=== PATIENT | male | born 1955 | race Caucasian/White ===

== ENCOUNTER 2018-11-17 16:34 | Outpatient (REF) | payer SELFPAY ==
[2018-11-17 21:03] LABS: Hemoglobin A1C 7.9 % (4.5-6.2)
[2018-11-17 21:08] LABS: ALT 52 U/L (12-78); AST 32 U/L (15-37); Albumin 3.8 g/dL (3.4-5.0); Alkaline Phosphatase 79 U/L (46-116); Anion Gap 10.3 mmol/L (3-11); BUN 17 mg/dL (7-18); Bilirubin, Total 0.3 mg/dL (0.2-1.0); CO2 24.7 mmol/L (21.0-32.0); CREATININE 1.33 mg/dL (0.70-1.30); Calcium 10.7 mg/dL (8.5-10.1); Chloride 103 mmol/L (98-107); Cholesterol 211 mg/dL (50-200); Estimated GFR 54.13 (mL/min/1.73m2); Glucose 163 mg/dL (70-100); HDL Cholesterol 27 mg/dL (40-60); LDL CHOLESTEROL 137 mg/dL (<100); Potassium 5.1 mmol/L (3.5-5.1); Sodium 138 mmol/L (136-145); Total Protein 7.5 g/dL (6.4-8.2); Triglyceride 311 mg/dL (30-150)
[2018-11-20 10:21] LABS: PSA, Screening 4.2 ng/ml (0-4.5)
== END 2018-11-17 16:54 ==
LOC: NCHCN 16:34
PROVIDERS: PCP Family Medicine; Visit Provider Family Medicine
DX: R73.01 Impaired fasting glucose (principal); E78.5 Hyperlipidemia, unspecified; I10 Essential (primary) hypertension; E88.81 Metabolic syndrome and other insulin resistance; Z12.5 Encounter for screening for malignant neoplasm of prostate
CPT/HCPCS: 80053; 80061; 83721; 84153; 83036

== ENCOUNTER 2019-07-01 01:19 | Outpatient (CLI) | payer MEDICARE, SELFPAY ==
--- NOTE | 2019-07-01 10:35 | DI.RAD_ITS ---
SYMPTOM/DIAGNOSIS: LT FOOT PAIN, M79.672 LEFT FOOT: Three views. No evidence of an acute or healing fracture or dislocation. There are mild degenerative changes seen at the first metatarsal phalangeal joint. No radiopaque foreign bodies are seen in the soft tissues. IMPRESSION: Mild degenerative changes of the left foot.
== END 2019-07-01 01:39 ==
PROVIDERS: PCP Family Medicine; Visit Provider Family Medicine
DX: M79.672 Pain in left foot (principal); M19.072 Primary osteoarthritis, left ankle and foot
CPT/HCPCS: 73630

== ENCOUNTER 2020-08-04 02:46 | Outpatient (CLI) | payer MEDICARE, SELFPAY ==
--- NOTE | 2020-08-04 09:25 | DI.RAD_ITS ---
EXAM: XR SHOULDER RT COMPLETE 2+V CLINICAL HISTORY: RT SHOULDER PAIN, M25.511 TECHNIQUE: 2D digital imaging was performed. COMPARISON: No exams were available for comparison FINDINGS: There is spurring at the AC joint and undersurface of the acromion. There is mild spurring at the gl enoid. Humeral head is normally positioned. A subchondral cyst is seen near the greater tuberosity. No tendon or joint space calcifications are seen. IMPRESSION: [id number] degenerative changes of the AC joint and glenohumeral joint.
== END 2020-08-04 03:06 ==
PROVIDERS: PCP Family Medicine; Visit Provider Family Medicine
DX: M19.011 Primary osteoarthritis, right shoulder (principal)
CPT/HCPCS: 73030

== ENCOUNTER 2020-09-08 10:25 | Outpatient (REF) | payer MEDICARE, SELFPAY ==
[2020-09-08 19:03] LABS: HGB 14.3 g/dL (13.5-17.5); MCHC 31.8 % (32.0-36.0); MCV 91.3 fL (80-95); MPV 10.6 fL (8.0-11.0); Platelet Count 240 10^3/uL (130-400); RBC 4.93 10^6/uL (4.36-5.78); RDW 12.1 % (11.8-14.1); RDW-SD 40.7 fL; WBC 8.75 10^3/uL (4.4-10.8)
[2020-09-08 19:11] LABS: ALT 35 U/L (16-63); AST 20 U/L (15-37); Albumin 4.2 g/dL (3.4-5.0); Alkaline Phosphatase 71 U/L (46-116); Anion Gap 5.5 mmol/L (3-11); BUN 24 mg/dL (7-18); Bilirubin, Total 0.4 mg/dL (0.2-1.0); CO2 25.5 mmol/L (21.0-32.0); CREATININE 1.21 mg/dL (0.70-1.30); Calcium 10.5 mg/dL (8.5-10.1); Calculated LDL 165 mg/dL (<100); Chloride 105 mmol/L (98-107); Cholesterol 240 mg/dL (<200); Glucose 127 mg/dL (74-106); HDL Cholesterol 28 mg/dL (40-60); Potassium 5.5 mmol/L (3.5-5.1); Sodium 136 mmol/L (136-145); Total Protein 7.4 g/dL (6.4-8.2); Triglyceride 236 mg/dL (<150)
[2020-09-13 13:29] LABS: PSA, Screening 5.6 ng/mL (0-4.5)
== END 2020-09-08 10:45 ==
LOC: NCHCN 10:25
PROVIDERS: PCP Family Medicine; Visit Provider Family Medicine
DX: E11.9 Type 2 diabetes mellitus without complications (principal); Z00.00 Encounter for general adult medical examination without abnormal findings; I10 Essential (primary) hypertension; E78.5 Hyperlipidemia, unspecified
CPT/HCPCS: 80053; 80061; 84153; 85027

== ENCOUNTER 2020-12-21 13:24 | Outpatient (REF) | payer MEDICARE, SELFPAY ==
[2020-12-21 16:41] LABS: Hemoglobin A1C 6.5 % (<5.7)
[2020-12-21 16:55] LABS: Anion Gap 8.1 mmol/L (3-11); BUN 15 mg/dL (7-18); CO2 24.9 mmol/L (21.0-32.0); CREATININE 1.2 mg/dL (0.70-1.30); Calcium 11.1 mg/dL (8.5-10.1); Calculated LDL 142 mg/dL (<100); Chloride 106 mmol/L (98-107); Cholesterol 214 mg/dL (<200); Glucose 137 mg/dL (74-106); HDL Cholesterol 31 mg/dL (40-60); Potassium 5.2 mmol/L (3.5-5.1); Sodium 139 mmol/L (136-145); Triglyceride 207 mg/dL (<150)
== END 2020-12-21 13:25 | disposition home or self-care (01) ==
LOC: NCHCN 13:24
PROVIDERS: PCP Family Medicine; Visit Provider Family Medicine
DX: E11.9 Type 2 diabetes mellitus without complications (principal); I10 Essential (primary) hypertension; E78.5 Hyperlipidemia, unspecified; E88.81 Metabolic syndrome and other insulin resistance; Z12.5 Encounter for screening for malignant neoplasm of prostate
CPT/HCPCS: 80048; 80061; 84153; 83036

== ENCOUNTER 2021-01-06 18:50 | Outpatient (REF) | payer MEDICARE, SELFPAY ==
[2021-01-06 16:06] LABS: Anion Gap 10.5 mmol/L (3-11); BUN 20 mg/dL (7-18); CO2 24.5 mmol/L (21.0-32.0); CREATININE 1.2 mg/dL (0.70-1.30); Chloride 105 mmol/L (98-107); Glucose 160 mg/dL (74-106); Potassium 5.4 mmol/L (3.5-5.1); Sodium 140 mmol/L (136-145)
[2021-01-09 11:27] LABS: Parathyroid Hormone,Intact 151 pg/mL (19-88)
== END 2021-01-06 18:51 | disposition home or self-care (01) ==
LOC: NCHCN 18:50
PROVIDERS: PCP Family Medicine; Visit Provider Family Medicine
DX: E83.52 Hypercalcemia (principal)
CPT/HCPCS: 80048; 83970

== ENCOUNTER 2021-04-04 03:06 | Outpatient (CLI) | payer MEDICARE, SELFPAY ==
[2021-04-04 12:38] LABS: Creatinine,Urine 71.52 mg/dL
[2021-04-04 12:52] LABS: ALT 46 U/L (16-63); AST 20 U/L (15-37); Albumin 4.1 g/dL (3.4-5.0); Alkaline Phosphatase 91 U/L (46-116); Anion Gap 9.1 mmol/L (3-11); BUN 22 mg/dL (7-18); Bilirubin, Total 0.5 mg/dL (0.2-1.0); CO2 25.9 mmol/L (21.0-32.0); CREATININE 1.2 mg/dL (0.70-1.30); Calcium 11.1 mg/dL (8.5-10.1); Chloride 103 mmol/L (98-107); Glucose 187 mg/dL (74-106); PHOSPHORUS 2.6 mg/dL (2.6-4.7); Potassium 5.5 mmol/L (3.5-5.1); Sodium 138 mmol/L (136-145); TSH 0.98 uIU/mL (0.36-3.74); Total Protein 7.6 g/dL (6.4-8.2)
[2021-04-05 10:42] LABS: Parathyroid Hormone,Intact 140 pg/mL (19-88)
[2021-04-07 15:03] LABS: 1,25-Dihydroxyvitamin D 38 pg/mL (18-64)
[2021-04-07 16:25] LABS: Calcium, Random Ur 8 mg/dL; Creatinine, Random Ur 75 mg/dL (16 - 326)
== END 2021-04-04 03:07 | disposition home or self-care (01) ==
LOC: LBO 03:06
PROVIDERS: PCP Family Medicine; Visit Provider Internal Medicine Endocrinology, Diabetes & Metabolism
DX: E83.52 Hypercalcemia (principal); E21.0 Primary hyperparathyroidism; R53.83 Other fatigue
CPT/HCPCS: 36415; 80053; 82306; 82310; 82565; 82652; 83970; 84100; 84443

== ENCOUNTER 2021-06-26 17:00 | Outpatient (REF) | payer MEDICARE, SELFPAY ==
[2021-06-26 15:09] LABS: Calcium 9.2 mg/dL (8.5-10.1)
[2021-06-27 10:03] LABS: Parathyroid Hormone,Intact 92 pg/mL (19-88)
== END 2021-06-26 17:01 | disposition home or self-care (01) ==
LOC: NCHCN 17:00
PROVIDERS: PCP Family Medicine; Visit Provider Family Medicine
DX: E83.52 Hypercalcemia (principal); D35.1 Benign neoplasm of parathyroid gland; E21.3 Hyperparathyroidism, unspecified
CPT/HCPCS: 82310; 83970

== ENCOUNTER 2021-08-31 10:38 | Outpatient (REF) | payer MEDICARE, SELFPAY ==
[2021-08-31 15:50] LABS: ALT 36 U/L (16-63); AST 19 U/L (15-37); Albumin 4.3 g/dL (3.4-5.0); Alkaline Phosphatase 65 U/L (46-116); Anion Gap 9.7 mmol/L (3-11); BUN 22 mg/dL (7-18); Bilirubin, Total 0.4 mg/dL (0.2-1.0); CO2 27.3 mmol/L (21.0-32.0); CREATININE 1.3 mg/dL (0.70-1.30); Calcium 9.6 mg/dL (8.5-10.1); Chloride 103 mmol/L (98-107); Estimated GFR 55.06 (mL/min/1.73m2); Glucose 138 mg/dL (74-106); Potassium 5.6 mmol/L (3.5-5.1); Sodium 140 mmol/L (136-145); Total Protein 7.7 g/dL (6.4-8.2)
[2021-08-31 15:56] LABS: Hemoglobin A1C 7.1 % (<5.7)
[2021-08-31 16:14] LABS: Vitamin D 25 Total 27.7 ng/mL (30-100)
[2021-09-01 09:28] LABS: Parathyroid Hormone,Intact 42 pg/mL (19-88)
== END 2021-08-31 10:39 | disposition home or self-care (01) ==
LOC: NCHCN 10:38
PROVIDERS: PCP Family Medicine; Visit Provider Family Medicine
DX: E11.9 Type 2 diabetes mellitus without complications (principal); D35.1 Benign neoplasm of parathyroid gland; E83.52 Hypercalcemia; E88.81 Metabolic syndrome and other insulin resistance
CPT/HCPCS: 80053; 82306; 83036; 83970

== ENCOUNTER 2022-01-17 10:19 | Outpatient (REF) | payer MEDICARE, SELFPAY ==
[2022-01-17 12:45] LABS: ALT 39 U/L (16-63); AST 23 U/L (15-37); Albumin 4.4 g/dL (3.4-5.0); Alkaline Phosphatase 62 U/L (46-116); Anion Gap 9.2 mmol/L (3-11); BUN 20 mg/dL (7-18); Bilirubin, Total 0.4 mg/dL (0.2-1.0); CO2 25.8 mmol/L (21.0-32.0); CREATININE 1.3 mg/dL (0.70-1.30); Calcium 9.4 mg/dL (8.5-10.1); Chloride 102 mmol/L (98-107); Cholesterol 230 mg/dL (<200); Estimated GFR 55.06 (mL/min/1.73m2); Glucose 150 mg/dL (74-106); HDL Cholesterol 30 mg/dL (40-60); Potassium 5.7 mmol/L (3.5-5.1); Sodium 137 mmol/L (136-145); Total Protein 7.6 g/dL (6.4-8.2); Triglyceride 424 mg/dL (<150)
[2022-01-17 12:58] LABS: LDL CHOLESTEROL 135 mg/dL (<100)
[2022-01-17 22:54] LABS: PSA, Screening 6.7 ng/mL (0.0-4.5)
== END 2022-01-17 10:20 | disposition home or self-care (01) ==
LOC: NCHCN 10:19
PROVIDERS: PCP Family Medicine; Visit Provider Family Medicine
DX: E11.9 Type 2 diabetes mellitus without complications (principal); R97.20 Elevated prostate specific antigen [PSA]; I10 Essential (primary) hypertension; E78.5 Hyperlipidemia, unspecified; Z12.5 Encounter for screening for malignant neoplasm of prostate
CPT/HCPCS: 80053; 80061; 83721; 84153; 83036

== ENCOUNTER 2022-04-24 19:23 | Outpatient (REF) | payer MEDICARE, SELFPAY ==
[2022-04-24 16:18] LABS: ALT 39 U/L (16-63); AST 27 U/L (15-37); Alkaline Phosphatase 54 U/L (46-116); Anion Gap 7.7 mmol/L (3-11); BUN 23 mg/dL (7-18); Bilirubin, Total 0.7 mg/dL (0.2-1.0); CO2 28.3 mmol/L (21.0-32.0); CREATININE 1.3 mg/dL (0.70-1.30); Calcium 9.4 mg/dL (8.5-10.1); Calculated LDL 87 mg/dL (<100); Chloride 103 mmol/L (98-107); Cholesterol 173 mg/dL (<200); Glucose 155 mg/dL (74-106); HDL Cholesterol 32 mg/dL (40-60); Potassium 5.7 mmol/L (3.5-5.1); Sodium 139 mmol/L (136-145); Total Protein 7.6 g/dL (6.4-8.2); Triglyceride 271 mg/dL (<150)
[2022-04-24 16:40] LABS: Hemoglobin A1C 7.5 % (<5.7)
== END 2022-04-24 19:24 | disposition home or self-care (01) ==
LOC: NCHCN 19:23
PROVIDERS: PCP Family Medicine; Visit Provider Physician Assistant Medical
DX: I10 Essential (primary) hypertension (principal); E11.9 Type 2 diabetes mellitus without complications
CPT/HCPCS: 80053; 80061; 83036

== ENCOUNTER 2022-05-28 09:54 | Outpatient (REF) | payer MEDICARE, SELFPAY ==
[2022-05-28 16:40] LABS: Anion Gap 11.7 mmol/L (3-11); BUN 20 mg/dL (7-18); CO2 25.3 mmol/L (21.0-32.0); CREATININE 1.4 mg/dL (0.70-1.30); Calcium 9.6 mg/dL (8.5-10.1); Chloride 101 mmol/L (98-107); Glucose 153 mg/dL (74-106); Potassium 4.1 mmol/L (3.5-5.1); Sodium 138 mmol/L (136-145)
== END 2022-05-28 09:55 | disposition home or self-care (01) ==
LOC: NCHCN 09:54
PROVIDERS: PCP Family Medicine; Visit Provider Family Medicine
DX: E87.5 Hyperkalemia (principal)
CPT/HCPCS: 80048

== ENCOUNTER 2023-02-04 08:53 | Outpatient (REF) | payer MEDICARE, SELFPAY ==
[2023-02-04 17:22] LABS: ALT 43 U/L (16-63); AST 25 U/L (15-37); Albumin 4.3 g/dL (3.4-5.0); Alkaline Phosphatase 52 U/L (46-116); Anion Gap 8.2 mmol/L (3-11); BUN 16 mg/dL (7-18); Bilirubin, Total 0.5 mg/dL (0.2-1.0); CO2 30.8 mmol/L (21.0-32.0); CREATININE 1.3 mg/dL (0.70-1.30); Calcium 9.8 mg/dL (8.5-10.1); Chloride 99 mmol/L (98-107); Creatine Kinase 106 U/L (39-308); Estimated GFR 59.47 (mL/min/1.73m2); Glucose 167 mg/dL (74-106); Potassium 3.8 mmol/L (3.5-5.1); Sodium 138 mmol/L (136-145)
[2023-02-04 17:34] LABS: Calculated LDL 85 mg/dL (<100); Cholesterol 163 mg/dL (<200); HDL Cholesterol 36 mg/dL (40-60); Triglyceride 210 mg/dL (<150)
[2023-02-04 17:43] LABS: Hemoglobin A1C 7.3 % (<5.7)
[2023-02-05 18:47] LABS: PSA, Diagnostic 6.8 ng/mL (<=4.5)
== END 2023-02-04 08:54 | disposition home or self-care (01) ==
LOC: NCHCN 08:53
PROVIDERS: PCP Family Medicine; Visit Provider Family Medicine
DX: I10 Essential (primary) hypertension (principal); E78.5 Hyperlipidemia, unspecified; E11.9 Type 2 diabetes mellitus without complications; E83.52 Hypercalcemia; E87.5 Hyperkalemia; R97.20 Elevated prostate specific antigen [PSA]; E88.81 Metabolic syndrome and other insulin resistance
CPT/HCPCS: 80053; 80061; 82550; 83036; 84153

== ENCOUNTER 2023-08-21 12:09 | Outpatient (REF) | payer MEDICARE, SELFPAY ==
[2023-08-21 15:32] LABS: ALT 40 U/L (16-63); AST 27 U/L (15-37); Alkaline Phosphatase 56 U/L (46-116); Anion Gap 9.9 mmol/L (3-11); BUN 15 mg/dL (7-18); Bilirubin, Total 0.5 mg/dL (0.2-1.0); CO2 27.1 mmol/L (21.0-32.0); CREATININE 1.2 mg/dL (0.70-1.30); Calcium 9.8 mg/dL (8.5-10.1); Chloride 100 mmol/L (98-107); Estimated GFR 65.46 (mL/min/1.73m2); Glucose 138 mg/dL (74-106); Sodium 137 mmol/L (136-145)
[2023-08-21 16:40] LABS: Hemoglobin A1C 7.1 % (<5.7)
== END 2023-08-21 12:10 | disposition home or self-care (01) ==
LOC: NCHCN 12:09
PROVIDERS: PCP Family Medicine; Visit Provider Family Medicine
DX: E11.9 Type 2 diabetes mellitus without complications (principal); E87.5 Hyperkalemia
CPT/HCPCS: 80053; 83036

== ENCOUNTER 2023-10-25 20:29 | Outpatient (REF) | payer MEDICARE, SELFPAY ==
[2023-10-25 18:30] LABS: ESR 33 mm/hr (0-20)
[2023-10-25 19:33] LABS: Anion Gap 8.7 mmol/L (3-11); BUN 15 mg/dL (7-18); C-Reactive Protein 0.38 mg/dL (0.0-0.3); CO2 27.3 mmol/L (21.0-32.0); CREATININE 1.3 mg/dL (0.70-1.30); Calcium 9.6 mg/dL (8.5-10.1); Chloride 103 mmol/L (98-107); Estimated GFR 59.47 (mL/min/1.73m2); Glucose 136 mg/dL (74-106); Sodium 139 mmol/L (136-145)
== END 2023-10-25 20:30 | disposition home or self-care (01) ==
LOC: NCHCN 20:29
PROVIDERS: PCP Family Medicine; Visit Provider Physician Assistant Medical
DX: M79.675 Pain in left toe(s) (principal); R79.82 Elevated C-reactive protein (CRP); R79.89 Other specified abnormal findings of blood chemistry; R70.0 Elevated erythrocyte sedimentation rate
CPT/HCPCS: 80048; 85652; 84550; 86140

== ENCOUNTER 2024-09-01 23:59 | Outpatient (REF) | payer MEDICARE, SELFPAY ==
[2024-09-01 17:25] LABS: ALT 44 U/L (16-63); AST 37 U/L (15-37); Alkaline Phosphatase 64 U/L (46-116); Anion Gap 10.3 mmol/L (3-11); BUN 16 mg/dL (7-18); Bilirubin, Total 0.48 mg/dL (0.2-1.0); CO2 29.7 mmol/L (21.0-32.0); CREATININE 1.3 mg/dL (0.70-1.30); Calcium 10.2 mg/dL (8.5-10.1); Chloride 102 mmol/L (98-107); Glucose 156 mg/dL (74-106); Potassium 3.7 mmol/L (3.5-5.1); Sodium 142 mmol/L (136-145); Total Protein 8.1 g/dL (6.4-8.2)
[2024-09-02 08:37] LABS: PSA, Screening 5.7 ng/mL (<=6.5)
== END 2024-09-02 | disposition home or self-care (01) ==
LOC: NCHCN 23:59
PROVIDERS: PCP Family Medicine; Visit Provider Family Medicine
DX: Z12.5 Encounter for screening for malignant neoplasm of prostate (principal); E11.9 Type 2 diabetes mellitus without complications
CPT/HCPCS: 80053; 84153

== ENCOUNTER 2024-09-11 00:41 | Outpatient (CLI) | payer MEDICARE, SELFPAY ==
--- NOTE | 2024-09-11 | DI.CTLCSR_ITS ---
Exam(s) CT CHEST LUNG CANCER SCREEN EXAM: CT CHEST LUNG CANCER SCREEN CLINICAL HISTORY: PERS HX NICOTINE DEPENDENCE Z87.891 TECHNIQUE: Imaging Protocol: Axial computed tomography images with coronal and sagittal reformatted images were created and reviewed. Computer aided detection (CAD) was utilized. COMPARISON: CR PORTABLE CHEST ONE VIEW from 01/24/2018 FINDINGS: Tracheobronchial tree: Patent where visualized. No bronchiectasis. Pulmonary parenchyma: [id number] centrilobular emphysematous changes are present. Mild promine nce of the interstitium is seen predominantly in the lower lobes which may be chronic. No focal cons olidating infiltrates are present. There are areas of atelectasis or scarring in the left lingula. Lung Nodules: There is a 5 mm perifissural nodule associated with the left major fissure (series 2, i mage 85). There is a 3 mm nodule seen in the medial aspect of the right middle lobe. Mediastinum and Alexandra: No dominant adenopathy or fluid collection. The esophagus is unremarkable. Thyroid gland: Unremarkable. Lymph nodes: Unremarkable. Pleura: No effusion or pneumothorax. Heart: The heart is not dilated. There is 3 vessel coronary artery calcification. No pericardial eff usion. Aorta: Thoracic aorta non-dilated.Atherosclerotic calcification is present. Upper abdomen: Unremarkable. Soft Tissues: There is a cardiac monitoring device in the left chest wall. Bones: Within normal limits for the patient's age. IMPRESSION: Pulmonary nodules as described above. Lung RADS Cat 3 - Probably Benign: Probably benign finding(s) - short term follow-up suggested; inclu de nodules with a low likelihood of becoming a clinically active cancer. Lung-RADS 1.0 CATEGORIES: Category 0 - Prior chest CT exam(s) being located for comparison. Category 1 - Annual screening in 12 months. No nodules or definitely benign nodules. Category 2 - Annual screening in 12 months. Benign appearance. Nodules with low likelihood of becomin g active cancer. Category 3 - 6-month follow-up. Probably benign. Short-term follow-up suggested. Nodules with low lik elihood of becoming active cancer. Category 4A - 3-month follow-up and CT/PET if >8 mm in size. Suspicious finding. Findings which requi re additional testing. Category 4B - Findings which require additional testing and tissue sampling. Suspicious finding. Category 4X - Category 3 or 4 nodules with additional features or imaging findings that increases the suspicion of malignancy. Modifier S- Potentially clinically significant finding. (Non lung cancer) RADIATION DOSE DELIVERED: 32.32mGy.cm Total DLP 32.32mGy.cmTotal DLP DATA REPOSITORY: All CT scans at this facility are submitted to the National Radiology Data Registry (NRDR) Dose Index Registry (DIR) with the [employer] ([employer]). RADIATION OPTIMIZATION: All CT scans at this facility use at least one of these dose optimization te chniques: automated exposure control; mA and/or kV adjustment per patient size (includes targeted exa ms where dose is matched to clinical indication); or iterative reconstruction.
--- NOTE | 2024-09-11 | DI.US_ITS ---
Exam(s) US AAA SCREENING EXAM: US AAA SCREENING CLINICAL HISTORY: ADULT MEDICAL EXAM Z00.00 FORMER SMOKER Z87.891 COMPARISON: No exams were available for comparison FINDINGS: Abdominal Aorta: Proximal: 2.2 x 2.4 cm Mid: 1.8 x 2.2 cm Distal: 1.8 x 1.8 cm Iliac's: Right: 1.1 x 1.5 cm Left: 1.1 x 1.3 cm IMPRESSION: No evidence of abdominal aortic aneurysm. DATA REPOSITORY:
== END 2024-09-11 01:01 ==
LOC: DI 00:42
PROVIDERS: PCP Family Medicine; Visit Provider Family Medicine
DX: Z87.891 Personal history of nicotine dependence (principal); Z13.6 Encounter for screening for cardiovascular disorders; Z12.2 Encounter for screening for malignant neoplasm of respiratory organs; R91.1 Solitary pulmonary nodule
CPT/HCPCS: 71271; 76706

== ENCOUNTER 2024-12-11 14:12 | Outpatient (CLI) | payer MEDICARE, SELFPAY ==
[2024-12-11 15:02] LABS: BUN 20 mg/dL (7-18); CREATININE 1.5 mg/dL (0.70-1.30); Chloride 98 mmol/L (98-107); Estimated GFR 49.77 (mL/min/1.73m2); Glucose 141 mg/dL (74-106); Potassium 3.8 mmol/L (3.5-5.1); Sodium 137 mmol/L (136-145)
[2024-12-11 22:30] LABS: Parathyroid Hormone,Intact 41.4 pg/mL (19.0-88.0)
== END 2024-12-11 14:13 | disposition home or self-care (01) ==
PROVIDERS: PCP Family Medicine; Visit Provider Family Medicine
DX: D35.1 Benign neoplasm of parathyroid gland (principal); I10 Essential (primary) hypertension
CPT/HCPCS: 36415; 80048; 83970

== ENCOUNTER 2025-01-19 16:37 | Outpatient (REF) | payer MEDICARE, SELFPAY ==
[2025-01-19 20:12] LABS: Anion Gap 9.6 mmol/L (3-11); BUN 20 mg/dL (7-18); CO2 29.4 mmol/L (21.0-32.0); CREATININE 1.3 mg/dL (0.70-1.30); Calcium 9.8 mg/dL (8.5-10.1); Chloride 104 mmol/L (98-107); Glucose 131 mg/dL (74-106); Potassium 4.2 mmol/L (3.5-5.1); Sodium 143 mmol/L (136-145)
[2025-01-19 20:19] LABS: Hemoglobin A1C 7.2 % (<5.7)
== END 2025-01-19 16:38 | disposition home or self-care (01) ==
LOC: NCHCN 16:37
PROVIDERS: PCP Family Medicine; Visit Provider Family Medicine
DX: I10 Essential (primary) hypertension (principal)
CPT/HCPCS: 80048; 83036

== ENCOUNTER 2025-10-26 15:28 | Outpatient (REF) | payer MEDICARE, SELFPAY ==
[2025-10-26 17:59] LABS: Microalb ug/mg Crea 47.0 ug/mg Cr
== END 2025-10-26 15:29 | disposition home or self-care (01) ==
LOC: NCHCN 15:28
PROVIDERS: PCP Family Medicine; Visit Provider Family Medicine
DX: E11.9 Type 2 diabetes mellitus without complications (principal)
CPT/HCPCS: 82043; 82570